=== PATIENT | female | born 1935 | race Caucasian/White ===

== ENCOUNTER 2016-08-24 09:40 | Inpatient (IN) | payer MEDICARE, OTHER ==
[2016-08-24] MEDS ORDERED: ASPIRIN 81 MG TABLET, CHEWABLE PO ONE (09:53)
--- NOTE | 2016-08-24 10:22 | ER Document Report ---
ED Cardiac - General Chief Complaint: Chest Pressure Stated Complaint: PRESSURE IN CHEST Time Seen by Provider: 08/24/16 10:04 Notes: Patient is complaining of a "pressure" in the anterior that started yesterday. It's been constant, increased with respirations, but not associated with any other symptoms. Has not felt short of breath or difficulty breathing. No nausea or vomiting or diarrhea. No fevers. Patient has a history of atrial fibrillation and is on Eliquis. Has never had pain or discomfort like current symptoms. Denies any recent unusual activity such as lifting or pushing or pulling or straining her chest. Patient has a history of atrial fibrillation, hypertension, and high cholesterol. 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 TRAVEL OUTSIDE OF THE [place] IN LAST 30 DAYS: No - Related Data Allergies/Adverse Reactions: No Known Allergies Allergy (Verified 03/22/15 07:22) Home Medications: Current Home Medications Apixaban [Eliquis 5 mg Tablet] 5 mg PO Q12 08/24/16 [History] Atorvastatin Calcium [Lipitor 20 mg Tablet] 20 mg PO QHS 08/24/16 [History] Past Medical History - Social History Smoking Status: Never Smoker Cigarette use (# per day): No Family History: Reviewed & Not Pertinent Patient has suicidal ideation: No Patient has homicidal ideation: No - Past Medical History Cardiac Medical History: Reports: Hx Atrial Fibrillation, Hx Hypercholesterolemia, Hx Hypertension Past Surgical History: Reports: Other - Patient had surgery for a brain aneurysm in the right christianity area years ago - Immunizations Hx Diphtheria, Pertussis, Tetanus Vaccination: No - UNSURE OF PNEU APPROX 2013. Review of Systems - Review of Systems Notes: REVIEW OF SYSTEMS: CONSTITUTIONAL : Denies fever. EENT: Denies eye, ear, nose or mouth or throat pain or other symptoms. CARDIOVASCULAR: Denies chest pain. See history of present illness. RESPIRATORY: Denies cough, chest congestion, or shortness of breath. GASTROINTESTINAL: Denies abdominal pain or nausea, vomiting, or diarrhea. GENITOURINARY: Denies difficulty or painful urinating, urinary frequency, blood in urine. MUSCULOSKELETAL: Denies back or neck pain. Denies joint pain or swelling. SKIN: Denies rash or skin lesions. NEUROLOGICAL: Denies LOC or altered mental status. Denies headache. Denies sensory loss or motor deficits. ALL OTHER SYSTEMS REVIEWED AND NEGATIVE. Physical Exam - Vital signs Vitals: Pulse Ox 98 08/24/16 09:53 Interpretation: Tachycardic. No: Febrile - Notes Notes: PHYSICAL EXAMINATION: GENERAL: Well-appearing, in no acute distress. Vital signs show an irregular heart rate at about 110. Patient is afebrile. HEAD: Atraumatic, normocephalic. ENT: oropharynx clear without exudates. Moist mucous membranes. NECK: Normal range of motion, supple. LUNGS: Breath sounds clear and equal bilaterally. No pain to press on the anterior chest. Pain if the patient takes a deep breath, however. HEART: Irregular rate and rhythm without murmurs. Heart rate about 110. ABDOMEN: Soft, nontender. No guarding or rebound. BACK: No tenderness throughout entire back. EXTREMITIES: Normal range of motion without pain. NEUROLOGICAL: Normal speech, normal gait. Normal sensory, motor, and reflex exams. Awake, alert, and oriented x3. Cranial nerves normal. PSYCH: Normal mood, normal affect. SKIN: Warm, dry, no rashes. Course - Re-evaluation Re-evalutation: 08/24/16 12:23 Case discussed with hospitalist who will admit the patient to telemetry for antibiotics and evaluation for her chest pain and management of her heart rate. - Vital Signs Vital signs: Temp Pulse Resp BP Pulse Ox 97.6 F 96 22 H 126/73 H 98 08/25/16 11:51 08/25/16 11:51 08/25/16 11:51 08/25/16 11:51 08/25/16 11:51 - Laboratory Result Diagrams: 08/25/16 04:26 08/25/16 04:26 Laboratory results interpreted by me: 08/24/16 08/24/16 08/24/16 10:20 10:20 10:20 WBC 15.5 H Seg Neuts % (Manual) 83 H Band Neutrophils % 9 H Lymphocytes % (Manual) 3 L Abs Neuts (Manual) 14.3 H PT 22.0 H Sodium 130.8 L Chloride 92 L Est GFR (Non-Af Amer) 56 L Glucose 187 H Total Bilirubin 2.8 H Direct Bilirubin 0.7 H Creatine Kinase 29 L TSH Urine Protein Urine Glucose (UA) Urine Ketones Urine Blood Ur Leukocyte Esterase 08/24/16 08/24/16 10:20 10:33 WBC Seg Neuts % (Manual) Band Neutrophils % Lymphocytes % (Manual) Abs Neuts (Manual) PT Sodium Chloride Est GFR (Non-Af Amer) Glucose Total Bilirubin Direct Bilirubin Creatine Kinase TSH 6.30 H Urine Protein 100 H Urine Glucose (UA) 50 H Urine Ketones 20 H Urine Blood SMALL H Ur Leukocyte Esterase MODERATE H Significant shift in the patient's CBC differential noted. Slight elevation in the patient's bilirubin noted. - Diagnostic Test Radiology results interpreted by me: 08/24/16 12:22 Chest x-ray shows cardiomegaly. Perhaps an infiltrate in the left base. No other significant findings. - EKG Interpretation by [place] Rhythm: A.Fib Additional EKG results interpreted by nh: 08/24/16 12:22 EKG shows atrial fibrillation with a heart rate of about 119. Nonspecific ST changes. Critical Care Note - Critical Care Note Total time excluding time spent on procedures (mins): 35 Discharge - Discharge Clinical Impression: Atrial fibrillation with rapid ventricular response Chest pain Qualifiers: Chest pain type: unspecified Qualified Code(s): R07.9 - Chest pain, unspecified UTI (urinary tract infection) Qualifiers: Urinary tract infection type: site unspecified Hematuria presence: without hematuria Qualified Code(s): N39.0 - Urinary tract infection, site not specified Condition: Good Disposition: HOME, SELF-CARE Admitting Provider: Hospitalist Unit Admitted: Telemetry
[2016-08-24 10:53] LABS: PARTIAL THROMBOPLASTIN TIME 33.8 SEC (23.5-35.8)
[2016-08-24 10:55] LABS: HEMOGLOBIN 14.1 g/dL (12.0-15.5); HGB HCT DIFFERENCE 0.3; MEAN CORPUSCULAR HEMOGLOBIN 32.3 pg (27.0-33.4); MEAN CORPUSCULAR HGB CONC 33.5 g/dL (32.0-36.0); MEAN CORPUSCULAR VOLUME 96 fl (80-97); RED BLOOD COUNT 4.36 10^6/uL (3.72-5.28); RED CELL DISTRIBUTION WIDTH 13.6 % (11.5-14.0); WHITE BLOOD COUNT 15.5 10^3/uL (4.0-10.5)
[2016-08-24 10:56] LABS: APPEARANCE,URINE TURBID; BILIRUBIN,URINE NEGATIVE (NEGATIVE); GLUCOSE, URINE 50 mg/dL (NEGATIVE); KETONES,URINE 20 mg/dL (NEGATIVE); LEUKOCYTE ESTERASE,URINE MODERATE (NEGATIVE); NITRITE,URINE NEGATIVE (NEGATIVE); PROTEIN,URINE 100 mg/dL (NEGATIVE); URINE SPECIFIC GRAVITY 1.018; UROBILINOGEN,URINE NEGATIVE mg/dL (<2.0)
[2016-08-24 11:21] LABS: CREATINE KINASE MB < 0.22 ng/mL (<4.55); TROPONIN I < 0.012 ng/mL
[2016-08-24 11:23] LABS: ALANINE AMINOTRANSFERASE 29 U/L (9-52); ALBUMIN 4.2 g/dL (3.5-5.0); ALKALINE PHOSPHATASE 115 U/L (38-126); ANION GAP 16 (5-19); ASPARTATE AMINO TRANSFERASE 30 U/L (14-36); BILIRUBIN,DIRECT 0.7 mg/dL (0.0-0.4); BILIRUBIN,TOTAL 2.8 mg/dL (0.2-1.3); BLOOD UREA NITROGEN 16 mg/dL (7-20); CALCIUM 9.4 mg/dL (8.4-10.2); CARBON DIOXIDE 23 mmol/L (22-30); CHLORIDE 92 mmol/L (98-107); CREATINE KINASE 29 U/L (30-135); CREATININE RESULT 0.96 mg/dL (0.52-1.25); GLUCOSE 187 mg/dL (75-110); SODIUM 130.8 mmol/L (137-145); TOTAL PROTEIN 7.4 g/dL (6.3-8.2)
[2016-08-24 11:43] LABS: EOSINOPHILS % (MANUAL) 0 % (0-6); TOTAL CELLS COUNTED 100
[2016-08-24 11:48] LABS: RBC MORPHOLOGY COMMENT NORMO-CYTIC/CHROMIC; TOXIC GRANULATION SLIGHT; TOXIC VACUOLATION PRESENT
[2016-08-24 12:02] LABS: BAND NEUTROPHILS % (MANUAL) 9 % (3-5); BASOPHILS % (MANUAL) 1 % (0-2); LYMPHOCYTES % (MANUAL) 3 % (13-45)
--- NOTE | 2016-08-24 12:06 | EKG REPORT ---
SEVERITY:- ABNORMAL ECG - ATRIAL FIBRILLATION, V-RATE 83-149 NONSPECIFIC T ABNORMALITIES, INFERIOR LEADS : Confirmed by: Abiel Gauthier 24-Aug-2016 12:06:25
[2016-08-24] MEDS ORDERED: CEFTRIAXONE 1 GM/D5W RTU 50 ML IV ONE (12:13)
[2016-08-24] MEDS ORDERED: NORMAL SALINE 1000 ML 1,000 ML IV ONE (14:26)
[2016-08-24] MEDS ORDERED: ACETAMINOPHEN 325 MG TABLET PO PRN (14:27)
[2016-08-24] MEDS ORDERED: ONDANSETRON HCL INJ/PF 4 MG/2 ML SDV IV PRN (14:27)
--- NOTE | 2016-08-24 14:49 | PDOC H&P ---
History of Present Illness Admission Date/PCP: 08/24/16 12:34 Patient complains of: Chest pain History of Present Illness: DEBBY WOLFE is a 81 year old female, with history of hypertension as well as atrial fibrillation and hyperlipidemia started to develop urinary urgency and frequency for a few days subsequently woke up with chest tightness and palpitations this morning. There was no dizziness or lightheadedness nor syncope. There is likewise no shortness of breath or diaphoresis, no nausea or vomiting. No cough or colds, no chills or fever. The patient was brought to the hospital for evaluation patient was found to be in atrial fibrillation with rapid ventricular response. She was found to have a urinary tract infection as well. Intravenous fluid was given, as well as antibiotics and the patient was referred for admission. The chest pain was precordial without any radiation and without any precipitating or relieving factors. No relation to activity as well. Past Medical History Past Medical History: Medications pending verification from the patients pharmacist. Cardiac Medical History: Reports: Atrial Fibrillation, Hyperlipidema, Hypertension Denies: Coronary Artery Disease, Myocardial Infarction Pulmonary Medical History: Denies: Asthma, Bronchitis, Chronic Obstructive Pulmonary Disease (COPD), Pneumonia Neurological Medical History: Denies: Seizures Musculoskeltal Medical History: Denies: Arthritis Hematology: Denies: Anemia Past Surgical History Past Surgical History: Reports: Other - Patient had surgery for a brain aneurysm in the right yazidi area years ago Denies: Hysterectomy Social History Information Source: Patient Smoking Status: Never Smoker Frequency of Alcohol Use: Social Hx Recreational Drug Use: No Drugs: None Family History Family History: None Parental Family History Reviewed: Yes Children Family History Reviewed: Yes Sibling(s) Family History Reviewed.: Yes Medication/Allergy Home Medications: Aspirin [Aspirin EC] 81 mg PO DAILY 03/22/15 Lisinopril 10 mg PO DAILY 03/22/15 Apixaban [Eliquis 5 mg Tablet] 5 mg PO Q12 08/24/16 Atorvastatin Calcium [Lipitor 20 mg Tablet] 20 mg PO QHS 08/24/16 Metoprolol Succinate [Toprol XL 100 mg Tablet] 100 mg PO DAILY 08/24/16 Allergies/Adverse Reactions: No Known Allergies Allergy (Verified 03/22/15 07:22) Review of Systems Constitutional: ABSENT: chills, fever(s), headache(s), weight gain, weight loss Eyes: ABSENT: visual disturbances Ears: ABSENT: hearing changes Cardiovascular: PRESENT: chest pain. ABSENT: dyspnea on exertion, edema, orthropnea, palpitations Respiratory: ABSENT: cough, dyspnea, hemoptysis, sputum Gastrointestinal: PRESENT: bloating. ABSENT: abdominal pain, constipation, diarrhea, hematemesis, hematochezia, melena, nausea, vomiting Genitourinary: PRESENT: other - urgency and frequency. ABSENT: dysuria, hematuria Musculoskeletal: ABSENT: joint swelling Integumentary: ABSENT: pruritus, rash, wounds Neurological: ABSENT: abnormal gait, abnormal speech, confusion, dizziness, focal weakness, syncope Psychiatric: ABSENT: anxiety, depression, homidical ideation, suicidal ideation Endocrine: ABSENT: cold intolerance, heat intolerance, polydipsia, polyphagia, polyuria Hematologic/Lymphatic: ABSENT: easy bleeding, easy bruising Physical Exam Vital Signs: Temp Pulse Resp BP Pulse Ox 98.1 F 110 H 19 133/84 H 94 08/24/16 14:00 08/24/16 09:56 08/24/16 14:01 08/24/16 14:00 08/24/16 14:01 General appearance: PRESENT: no acute distress Head exam: PRESENT: atraumatic, normocephalic Eye exam: PRESENT: conjunctiva pink, EOMI, PERRLA - sluggish B/L, other - ptosis on R. ABSENT: scleral icterus Ear exam: PRESENT: normal external ear exam Mouth exam: PRESENT: moist, neck supple, tongue midline Throat exam: ABSENT: post pharyngeal erythema, tonsillar erythema, tonsillar exudate Neck exam: ABSENT: carotid bruit, JVD, lymphadenopathy, thyromegaly Respiratory exam: PRESENT: clear to auscultation gisele. ABSENT: rales, rhonchi, wheezes Cardiovascular exam: PRESENT: RRR, systolic murmur - LSB, 2/6. ABSENT: diastolic murmur, rubs Pulses: PRESENT: normal dorsalis pedis pul Vascular exam: PRESENT: normal capillary refill GI/Abdominal exam: PRESENT: normal bowel sounds, soft. ABSENT: distended, guarding, mass, organolmegaly, rebound, tenderness Rectal exam: PRESENT: deferred Extremities exam: PRESENT: full ROM. ABSENT: calf tenderness, clubbing, pedal edema Neurological exam: PRESENT: alert, awake, oriented to person, oriented to place , oriented to time, oriented to situation Psychiatric exam: PRESENT: appropriate affect, normal mood. ABSENT: homicidal ideation, suicidal ideation Skin exam: PRESENT: dry, intact, warm. ABSENT: cyanosis, rash Results Laboratory Results: 08/24/16 13:07 Troponin I < 0.012 Impressions: Chest X-Ray 08/24/16 09:53 IMPRESSION: Borderline cardiomegaly, possible left lower lobe pneumonia, and no evidence of failure. Assessment & Plan - Diagnosis (1) Atrial fibrillation with rapid ventricular response Is this a current diagnosis for this admission?: Yes (2) Chest pain Qualifiers: Chest pain type: unspecified Qualified Code(s): R07.9 - Chest pain, unspecified Is this a current diagnosis for this admission?: Yes (3) Hyponatremia Is this a current diagnosis for this admission?: Yes (4) UTI (urinary tract infection) Qualifiers: Urinary tract infection type: site unspecified Hematuria presence: without hematuria Qualified Code(s): N39.0 - Urinary tract infection, site not specified Is this a current diagnosis for this admission?: Yes (5) Coagulopathy Is this a current diagnosis for this admission?: Yes (6) Hyperlipidemia Qualifiers: Hyperlipidemia type: unspecified Qualified Code(s): E78.5 - Hyperlipidemia, unspecified Is this a current diagnosis for this admission?: Yes (7) Essential hypertension Is this a current diagnosis for this admission?: Yes - Time Time Spent: 50 to 70 Minutes - Inpatient Certification Based on my medical assessment, after consideration of the patient's comorbidities, presenting symptoms, or acuity I expect that the services needed warrant INPATIENT care.: Yes I certify that my determination is in accordance with my understanding of Medicare's requirements for reasonable and necessary INPATIENT services [42 CFR 412.3e].: Yes Medical Necessity: Significant Comorbidiites Make Outpatient Treatment Too Risky , Need Close Monitoring Due to Risk of Patient Decompensation, Need For IV Fluids, Need For Continuous Telemetry Monitoring Post Hospital Care: D/C 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 Resume oral cardizem. Increase home metoprolol dose. Begin IVF and IV antibiotics w/ Levaquin and supplemental O2. Serial cardiac enzymes x3. Cont. anti-platelets & eliquis. Monitor electrolytes. Further testing depends on the initial evaluation as outlined above.
[2016-08-24 15:49] LABS: THYROID STIMULATING HORMONE 6.3 uIU/mL (0.47-4.68)
[2016-08-24] MEDS: NORMAL SALINE 1000 ML 1,000 ML IV PRN (15:50)
[2016-08-24] MEDS ORDERED: LEVOFLOXACIN 750 MG/D5W RTU 750 MG/150 ML RTUPB IV ONE (16:00)
[2016-08-24] MEDS: DILTIAZEM HCL 30 MG TABLET PO SCH ×2 (16:51→23:41)
[2016-08-24] MEDS: METOPROLOL TARTRATE 50 MG TABLET PO SCH ×2 (16:51→23:41)
[2016-08-24] MEDS: DOCUSATE SODIUM 100 MG CAPSULE PO SCH (16:52)
[2016-08-24] MEDS: APIXABAN 2.5 MG TABLET PO SCH (16:53)
[2016-08-24 17:16] LABS: CREATINE KINASE MB 0.23 ng/mL (<4.55)
[2016-08-24 17:17] LABS: TROPONIN I < 0.012 ng/mL
[2016-08-24 23:06] LABS: CREATINE KINASE MB 0.39 ng/mL (<4.55)
[2016-08-24 23:08] LABS: TROPONIN I < 0.012 ng/mL
[2016-08-25 04:40] LABS: HEMATOCRIT 37.8 % (36.0-47.0); HEMOGLOBIN 12.9 g/dL (12.0-15.5); HGB HCT DIFFERENCE 0.9; MEAN CORPUSCULAR HEMOGLOBIN 32.7 pg (27.0-33.4); MEAN CORPUSCULAR HGB CONC 34.2 g/dL (32.0-36.0); MEAN CORPUSCULAR VOLUME 95 fl (80-97); RED BLOOD COUNT 3.96 10^6/uL (3.72-5.28); RED CELL DISTRIBUTION WIDTH 13.8 % (11.5-14.0); WHITE BLOOD COUNT 11.6 10^3/uL (4.0-10.5)
[2016-08-25 05:02] LABS: ANION GAP 13 (5-19); BLOOD UREA NITROGEN 24 mg/dL (7-20); CALCIUM 8.5 mg/dL (8.4-10.2); CARBON DIOXIDE 20 mmol/L (22-30); CHLORIDE 97 mmol/L (98-107); CREATININE RESULT 0.88 mg/dL (0.52-1.25); GLUCOSE 134 mg/dL (75-110); POTASSIUM 4.4 mmol/L (3.6-5.0); SODIUM 129.6 mmol/L (137-145)
[2016-08-25 05:05] LABS: BAND NEUTROPHILS % (MANUAL) 1 % (3-5); BASOPHILS % (MANUAL) 0 % (0-2); EOSINOPHILS % (MANUAL) 0 % (0-6); LYMPHOCYTES % (MANUAL) 4 % (13-45); TOTAL CELLS COUNTED 100
[2016-08-25 05:08] LABS: OVALOCYTES SLIGHT; PLATELET CLUMPS PRESENT; POIKILOCYTOSIS SLIGHT
[2016-08-25 05:09] LABS: TOXIC GRANULATION SLIGHT
[2016-08-25 05:11] LABS: CREATINE KINASE MB 0.55 ng/mL (<4.55)
[2016-08-25 05:14] LABS: TROPONIN I < 0.012 ng/mL
[2016-08-25] MEDS: METOPROLOL TARTRATE 50 MG TABLET PO SCH (05:17)
[2016-08-25] MEDS ORDERED: LANSOPRAZOLE 30 MG TAB.RAP.DR PO SCH (06:00)
[2016-08-25] MEDS: NORMAL SALINE 1000 ML 1,000 ML IV PRN (08:41)
[2016-08-25] MEDS: APIXABAN 2.5 MG TABLET PO SCH (09:32)
[2016-08-25] MEDS: DILTIAZEM HCL 30 MG TABLET PO SCH (09:34)
[2016-08-25] MEDS: DOCUSATE SODIUM 100 MG CAPSULE PO SCH (09:35)
[2016-08-25] MEDS ORDERED: LEVOFLOXACIN 750 MG/D5W RTU 750 MG/150 ML RTUPB IV SCH (10:00)
[2016-08-25] MEDS ORDERED: ASPIRIN 81 MG TABLET, ENT COATED PO SCH (10:00)
--- NOTE | 2016-08-25 10:04 | PDOC DISCHARGE SUMMARY ---
General - Admit/Disc Date/PCP Admission Date/Primary Care Provider: 08/24/16 14:27 Discharge Date: 08/25/16 - Discharge Diagnosis (1) Atrial fibrillation with rapid ventricular response Is this a current diagnosis for this admission?: Yes (2) Chest pain Is this a current diagnosis for this admission?: Yes (3) Hyponatremia Is this a current diagnosis for this admission?: Yes (4) UTI (urinary tract infection) Is this a current diagnosis for this admission?: Yes (5) Coagulopathy Is this a current diagnosis for this admission?: Yes (6) Hyperlipidemia Is this a current diagnosis for this admission?: Yes (7) Essential hypertension Is this a current diagnosis for this admission?: Yes - Additional Information Resuscitation Status: Full Code Discharge Diet: Cardiac Discharge Activity: Activity As Tolerated, Balance Activity w/Rest, Slowly Increase Activity Home Medications: Aspirin [Aspirin EC] 81 mg PO DAILY 03/22/15 Lisinopril 10 mg PO DAILY 03/22/15 Apixaban [Eliquis 5 mg Tablet] 5 mg PO Q12 08/24/16 Atorvastatin Calcium [Lipitor 20 mg Tablet] 20 mg PO QHS 08/24/16 Apixaban [Eliquis 2.5 mg Tablet] 2.5 mg PO BID tablet 08/25/16 Metoprolol Succinate [Toprol XL 100 mg Tablet] 100 mg PO BID #60 08/25/16 Additional Information: 1. Follow up final results of blood culture and urine culture as outpatient with primary care physician 2. Stress test as outpatient with primary or with Dr. Contreras in one week. History of Present Illness Patient complains of: Chest pain History of Present Illness: DEBBY WOLFE is a 81 year old female, with history of hypertension as well as atrial fibrillation and hyperlipidemia started to develop urinary urgency and frequency for a few days subsequently woke up with chest tightness and palpitations this morning. There was no dizziness or lightheadedness nor syncope. There is likewise no shortness of breath or diaphoresis, no nausea or vomiting. No cough or colds, no chills or fever. The patient was brought to the hospital for evaluation patient was found to be in atrial fibrillation with rapid ventricular response. She was found to have a urinary tract infection as well. Intravenous fluid was given, as well as antibiotics and the patient was referred for admission. The chest pain was precordial without any radiation and without any precipitating or relieving factors. No relation to activity as well. Hospital Course Hospital Course: The patient was admitted to telemetry. The patient was given intravenous fluids , oral Cardizem was started every 6 hours, his metoprolol dose was increased from 100 mg daily to 200 mg daily. Patient's blood pressure was monitored. Heart rate became controlled with above measure. Her TSH was elevated but her free T4 is normal . Patient was found to have urinary tract infection and was started on intravenous antibiotics. Patient's WBC initially was high and it trended down. No fever was noted. The patient significantly improved the following morning, wanting to go home and requested to be discharged. Patient was advised to follow-up with primary care physician in a week, and follow-up results all blood culture and an outpatient basis as well as urine culture. In terms of her chest pain it has resolved, serial cardiac enzymes were negative for myocardial infarction. She was advised to have a stress test done on an outpatient basis. Physical Exam Vital Signs: Temp Pulse Resp BP Pulse Ox 97.6 F 96 22 H 132/82 H 98 08/25/16 07:53 08/25/16 07:53 08/25/16 07:53 08/25/16 07:53 08/25/16 07:53 Intake & Output 08/24/16 08/25/16 08/26/16 06:59 06:59 06:59 Intake Total 2960 Balance 2960 Weight 71.1 kg General appearance: PRESENT: no acute distress, cooperative Head exam: PRESENT: normocephalic Eye exam: PRESENT: EOMI Mouth exam: PRESENT: moist, neck supple Neck exam: ABSENT: JVD Respiratory exam: PRESENT: clear to auscultation gisele Cardiovascular exam: PRESENT: irregular rhythm. ABSENT: gallop GI/Abdominal exam: PRESENT: soft. ABSENT: distended, tenderness Extremities exam: ABSENT: pedal edema Neurological exam: PRESENT: alert, awake, oriented to person, oriented to place , oriented to time, oriented to situation Skin exam: PRESENT: dry, warm. ABSENT: cyanosis Results Laboratory Results: 08/25/16 04:26 08/25/16 04:26 08/25/16 08/25/16 04:26 04:26 WBC 11.6 H RBC 3.96 Hgb 12.9 Hct 37.8 MCV 95 MCH 32.7 MCHC 34.2 RDW 13.8 Plt Count 120 L Seg Neutrophils % Not Reportable Lymphocytes % Not Reportable Monocytes % Not Reportable Eosinophils % Not Reportable Basophils % Not Reportable Absolute Neutrophils Not Reportable Absolute Lymphocytes Not Reportable Absolute Monocytes Not Reportable Absolute Eosinophils Not Reportable Absolute Basophils Not Reportable Sodium 129.6 L Potassium 4.4 Chloride 97 L Carbon Dioxide 20 L Anion Gap 13 BUN 24 H Creatinine 0.88 Est GFR ( Amer) > 60 Est GFR (Non-Af Amer) > 60 Glucose 134 H Calcium 8.5 08/24/16 08/24/16 08/24/16 16:30 16:30 22:36 Creatine Kinase 33 CK-MB (CK-2) 0.23 0.39 Troponin I < 0.012 < 0.012 08/24/16 08/25/16 08/25/16 22:36 04:26 04:26 Creatine Kinase 35 41 CK-MB (CK-2) 0.55 Troponin I < 0.012 Impressions: Chest X-Ray 08/24/16 09:53 IMPRESSION: Borderline cardiomegaly, possible left lower lobe pneumonia, and no evidence of failure. Qualifiers PATEINT BEING DISCHARGED WITH ANY OF THE FOLLOWING DIAGNOSIS?: No Plan Discharge Plan: Follow-up with primary care physician in one week. Time Spent: Less than 30 Minutes
[2016-08-25 11:54] VITALS: BP 126/73
== END 2016-08-25 12:35 | disposition home or self-care (01) | DRG 309 ==
LOC: ER 09:40 → UNDOADMIN 12:34 → EH 12:34 → 5 14:27 → EH 15:07
PROVIDERS: ADMIT Internal Medicine; ATTEND Internal Medicine
DX: I48.91 Unspecified atrial fibrillation (principal); N39.0 Urinary tract infection, site not specified; I10 Essential (primary) hypertension; Z79.02 Long term (current) use of antithrombotics/antiplatelets; E78.00 Pure hypercholesterolemia, unspecified; Z86.79 Personal history of other diseases of the circulatory system; Z79.899 Other long term (current) drug therapy
CPT/HCPCS: 36415; 71010; 80048; 80053; 81001; 82550; 82553; 84439; 84443; 84484; 85025; 85610; 85730; 87040; 87086; 87088; 87186; 93005; 93010; 99291; J0696; J1956; J7030

== ENCOUNTER 2016-09-08 07:07 | Emergency (ER) | payer MEDICARE, OTHER ==
--- NOTE | 2016-09-08 07:56 | ER Document Report ---
ED Dizziness/Weakness - General Chief Complaint: General Weakness Stated Complaint: WEAKNESS Time Seen by Provider: 09/08/16 07:41 Mode of Arrival: Ambulatory Information source: Patient Notes: Patient is a 81-year-old female who presents to the ER today for weakness, generalized 1 week. Patient was sent here by her caretaker For a pneumonia shot that he told her to come get at the ER because he said she had pneumonia when she saw him yesterday. She denies cough/ runny nose, fever/ chills that she knows of, dysuria. She was admitted here for a fib with rvr on this month and had a possible pneumonia seen on chest x ray at that time , got 1 day of IV levaquin and went home on no medications. She says that she was discharged 4 days ago from [facility] who treated her for "fluid on the lungs." She denies that she is on any antibiotics at this time or that they sent her home on any antibiotics. She denies knowing that she had pneumonia until yesterday at the caretaker's office. She denies chest pain or shortness of breath, wheezing. She denies any history of breathing issues such as asthma or COPD. TRAVEL OUTSIDE OF THE [place] IN LAST 30 DAYS: No - Related Data Allergies/Adverse Reactions: No Known Allergies Allergy (Verified 03/22/15 07:22) Past Medical History - General Information source: Patient - Social History Smoking Status: Never Smoker Family History: Reviewed & Not Pertinent Patient has suicidal ideation: No Patient has homicidal ideation: No - Past Medical History Cardiac Medical History: Reports: Hx Atrial Fibrillation, Hx Hypercholesterolemia, Hx Hypertension Denies: Hx Coronary Artery Disease, Hx Heart Attack Pulmonary Medical History: Denies: Hx Asthma, Hx Bronchitis, Hx COPD, Hx Pneumonia Neurological Medical History: Denies: Hx Cerebrovascular Accident, Hx Seizures Renal/ Medical History: Denies: Hx Peritoneal Dialysis Musculoskeltal Medical History: Denies Hx Arthritis Past Surgical History: Reports: Other - Patient had surgery for a brain aneurysm in the right anabaptism area years ago. Denies: Hx Hysterectomy - Immunizations Hx Diphtheria, Pertussis, Tetanus Vaccination: No - UNSURE OF PNEU APPROX 2012. Review of Systems - Review of Systems Constitutional: No symptoms reported EENT: No symptoms reported Cardiovascular: No symptoms reported Respiratory: See HPI Gastrointestinal: No symptoms reported Genitourinary: No symptoms reported Female Genitourinary: No symptoms reported Musculoskeletal: No symptoms reported Skin: No symptoms reported Hematologic/Lymphatic: No symptoms reported Neurological/Psychological: No symptoms reported Physical Exam - Vital signs Vitals: Temp Pulse Resp BP Pulse Ox 97.4 F 120 H 16 90/68 L 95 09/08/16 07:11 09/08/16 07:11 09/08/16 07:11 09/08/16 07:11 09/08/16 07:11 - Notes Notes: PHYSICAL EXAMINATION: GENERAL: mildly ill appearing, fatigued in appearance, in no acute distress. HEAD: Atraumatic, normocephalic. EYES: Pupils equal round and reactive to light, extraocular movements intact, sclera anicteric, conjunctiva are normal. ENT: ear canals without erythema or foreign body, TMs pearly rob with good bony landmarks, nares patent, oropharynx clear without exudates. Moist mucous membranes. NECK: Normal range of motion, supple without lymphadenopathy LUNGS: small cough once but otherwise CTAB and equal. No wheezes rales or rhonchi. HEART: Regular rate and rhythm without murmurs ABDOMEN: Soft, no tenderness. No guarding, no rebound BACK: no vertebral tenderness, normal ROM GI/: no CVA tenderness EXTREMITIES: Normal range of motion, no pitting edema. No cyanosis. NEUROLOGICAL: Cranial nerves grossly intact. Normal sensory/motor exams. PSYCH: Normal mood, normal affect. SKIN: Warm, Dry, normal turgor, no rashes or lesions noted Course - Re-evaluation Re-evalutation: 09/08/16 11:10 pt came in with a bp of 90/58 and pulse of 118bpm. She has stayed consistenly since arrival at 113/69 without any intervention and her pulse decreased to 95bpm. 09/08/16 18:23 - Vital Signs Vital signs: Temp Pulse Resp BP Pulse Ox 97.4 F 120 H 22 H 97/69 L 98 09/08/16 12:01 09/08/16 07:11 09/08/16 12:01 09/08/16 12:01 09/08/16 12:01 - Laboratory Result Diagrams: 09/08/16 08:10 09/08/16 08:10 Laboratory results interpreted by me: 09/08/16 09/08/16 08:10 08:10 RBC 3.39 L Hgb 10.8 L Hct 32.1 L RDW 14.1 H Seg Neuts % (Manual) 87 H Band Neutrophils % 2 L Lymphocytes % (Manual) 8 L Sodium 132.2 L Chloride 96 L Creatine Kinase 22 L Total Protein 6.2 L Discharge - Discharge Clinical Impression: Pneumonia Qualifiers: Pneumonia type: due to unspecified organism Laterality: right Lung location: lower lobe of lung Qualified Code(s): J18.1 - Lobar pneumonia, unspecified organism Atrial fibrillation Qualifiers: Atrial fibrillation type: chronic Qualified Code(s): I48.2 - Chronic atrial fibrillation Condition: Stable Disposition: HOME, SELF-CARE Additional Instructions: Please take your antibiotics as prescribed, and is very important that he continue on these as you have pneumonia. You have you been given an inhaler today if you need it at home for any shortness of breath, you can take it every 4 hours, 2 puffs by mouth. Please take your prednisone as well daily at breakfast time only for the pneumonia. Return immediately for any new or worsening symptoms. Please call a primary care provider, you can see [facility] in [place] and make a follow up appointment, you need to establish care at a primary care office, call today to make an appointment. [facility] Prescriptions: Albuterol Sulfate [Proair HFA Inhalation Aerosol 8.5 gm MDI] 2 puff IH Q4H PRN # 1 mdi PRN Reason: Doxycycline Hyclate 100 mg PO BID #20 capsule Prednisone 40 mg PO DAILY #14 tablet Referrals: PAUL ARVIZU MD [ACTIVE STAFF] - Follow up as needed
--- NOTE | 2016-09-08 08:20 | EKG REPORT ---
SEVERITY:- ABNORMAL ECG - ATRIAL FIBRILLATION, V-RATE 82-134 NONSPECIFIC T ABNORMALITIES, DIFFUSE LEADS : Confirmed by: Phi Stanley MD 08-Sep-2016 08:19:37
[2016-09-08 08:25] LABS: HEMATOCRIT 32.1 % (36.0-47.0); HEMOGLOBIN 10.8 g/dL (12.0-15.5); HGB HCT DIFFERENCE 0.3; MEAN CORPUSCULAR HGB CONC 33.8 g/dL (32.0-36.0); MEAN CORPUSCULAR VOLUME 95 fl (80-97); RED BLOOD COUNT 3.39 10^6/uL (3.72-5.28); RED CELL DISTRIBUTION WIDTH 14.1 % (11.5-14.0); WHITE BLOOD COUNT 7.8 10^3/uL (4.0-10.5)
[2016-09-08 08:40] LABS: ALANINE AMINOTRANSFERASE 41 U/L (9-52); ALBUMIN 3.5 g/dL (3.5-5.0); ALKALINE PHOSPHATASE 116 U/L (38-126); ANION GAP 10 (5-19); ASPARTATE AMINO TRANSFERASE 34 U/L (14-36); BILIRUBIN,DIRECT 0.3 mg/dL (0.0-0.4); BILIRUBIN,TOTAL 0.8 mg/dL (0.2-1.3); BLOOD UREA NITROGEN 19 mg/dL (7-20); CALCIUM 8.9 mg/dL (8.4-10.2); CARBON DIOXIDE 26 mmol/L (22-30); CHLORIDE 96 mmol/L (98-107); CREATINE KINASE 22 U/L (30-135); CREATININE RESULT 0.87 mg/dL (0.52-1.25); GLUCOSE 102 mg/dL (75-110); LIPASE 263.4 U/L (23-300); POTASSIUM 3.7 mmol/L (3.6-5.0); SODIUM 132.2 mmol/L (137-145); TOTAL PROTEIN 6.2 g/dL (6.3-8.2)
--- NOTE | 2016-09-08 08:41 | RADIOLOGY REPORT (SQ) ---
EXAM DESCRIPTION: CHEST SINGLE VIEW COMPLETED DATE/TIME: 09/08/2016 8:31 am REASON FOR STUDY: possible pneumonia COMPARISON: 08/24/2016 EXAM PARAMETERS: NUMBER OF VIEWS: One view. TECHNIQUE: Single frontal radiographic view of the chest acquired. RADIATION DOSE: NA LIMITATIONS: None. FINDINGS: LUNGS AND PLEURA: Persistent blunting of the left costophrenic angle with associated subse gmental airspace disease. Right lung is clear. MEDIASTINUM AND HILAR STRUCTURES: No masses. Contour normal. HEART AND VASCULAR STRUCTURES: Stable cardiomegaly. BONES: No acute findings. HARDWARE: None in the chest. OTHER: No other significant finding. IMPRESSION: Persistent/recurrent pneumonia left lower lobe. TECHNICAL DOCUMENTATION: JOB ID: [id number]
[2016-09-08 08:43] LABS: BAND NEUTROPHILS % (MANUAL) 2 % (3-5); BASOPHILS % (MANUAL) 0 % (0-2); EOSINOPHILS % (MANUAL) 0 % (0-6); LYMPHOCYTES % (MANUAL) 8 % (13-45); TOTAL CELLS COUNTED 100
[2016-09-08 08:44] LABS: ANISOCYTOSIS SLIGHT; HYPOCHROMASIA SLIGHT
[2016-09-08 08:52] LABS: TROPONIN I < 0.012 ng/mL
[2016-09-08] MEDS ORDERED: NORMAL SALINE 1000 ML 500 ML IV ONE (08:57)
[2016-09-08] MEDS ORDERED: LEVOFLOXACIN 750 MG/D5W RTU 150 ML IV ONE (09:33)
[2016-09-08 09:47] LABS: APPEARANCE,URINE CLEAR; BILIRUBIN,URINE NEGATIVE (NEGATIVE); GLUCOSE, URINE NEGATIVE (NEGATIVE); KETONES,URINE NEGATIVE (NEGATIVE); LEUKOCYTE ESTERASE,URINE NEGATIVE (NEGATIVE); NITRITE,URINE NEGATIVE (NEGATIVE); PROTEIN,URINE NEGATIVE (NEGATIVE); URINE SPECIFIC GRAVITY 1.004; UROBILINOGEN,URINE NEGATIVE mg/dL (<2.0)
[2016-09-08] MEDS ORDERED: METOPROLOL TARTRATE 25 MG TABLET PO ONE (10:08)
[2016-09-08] MEDS ORDERED: PREDNISONE 20 MG TABLET PO ONE (11:11)
[2016-09-08 12:29] VITALS: BP 97/69
== END 2016-09-08 12:29 | disposition home or self-care (01) ==
LOC: ER 07:07
DX: J18.1 Lobar pneumonia, unspecified organism (principal); I48.2 Chronic atrial fibrillation; R53.1 Weakness; E78.00 Pure hypercholesterolemia, unspecified; I10 Essential (primary) hypertension
CPT/HCPCS: 93005; 99285; 96365; 96366; 36415; 87040; 82553; 82550; 83690; 85025; 80053; 81001; 84484; 71010; 93010; A9270 ×2; J1956; J7512

== ENCOUNTER 2017-01-16 15:42 | Emergency (ER) | payer MEDICARE, OTHER ==
--- NOTE | 2017-01-16 16:02 | ER Document Report ---
ED General - General Stated Complaint: POSSIBLE STROKE Time Seen by Provider: 01/16/17 15:47 Notes: 81-year-old female with unknown past medical history secondary to patient altered mental status and EMS not knowing the entire history, presents to the ED last seen normal at 8 AM found by her after a golf game at about 3 PM on [address] floor. She had some aphasia and was weak on the left side. Blood sugar and vitals were normal per EMS. Brought in to the emergency department. No further history is available and patient cannot give a history. TRAVEL OUTSIDE OF THE [place] IN LAST 30 DAYS: No - Related Data Allergies/Adverse Reactions: No Known Allergies Allergy (Verified 03/22/15 07:22) Past Medical History - Social History Smoking Status: Unknown if Ever Smoked Family History: Reviewed & Not Pertinent - Past Medical History Cardiac Medical History: Reports: Hx Atrial Fibrillation, Hx Hypercholesterolemia, Hx Hypertension Denies: Hx Coronary Artery Disease, Hx Heart Attack Pulmonary Medical History: Denies: Hx Asthma, Hx Bronchitis, Hx COPD, Hx Pneumonia Neurological Medical History: Denies: Hx Cerebrovascular Accident, Hx Seizures Renal/ Medical History: Denies: Hx Peritoneal Dialysis Musculoskeltal Medical History: Denies Hx Arthritis Past Surgical History: Reports: Hx Neurologic Surgery - Brain surgery for aneurysm in 2000, Other - 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 Denies: Hx Hysterectomy - Immunizations Hx Diphtheria, Pertussis, Tetanus Vaccination: No - UNSURE OF PNEU APPROX 2012. Review of Systems - Review of Systems Notes: REVIEW OF SYSTEMS Unable to obtain secondary to aphasia PHYSICAL EXAMINATION General: No acute distress, well-nourished Head: Atraumatic, normocephalic ENT: Mouth normal, oropharynx moist, no exudates or tonsillar enlargement Eyes: Conjunctiva normal, pupils equal, lids normal Neck: No JVD, supple, no guarding CVS: Normal rate, regular rhythm, no murmurs Resp: No resp distress, equal and normal breath sounds bilaterally GI: Nondistended, soft, no tenderness to palpation, no rebound or guarding Ext: No deformities, no edema, normal range of motion in upper and lower ext Back: No CVA or midline TTP Skin: No rash, warm Lymphatic: No lymphadeopathy noted Neuro: Left-sided facial droop, no effort with left arm against gravity, no effort of left leg against gravity. Numbness to pinprick in left arm and leg. Mild aphasia. Patient knows her name. Mild dysarthria. Does not know the month of the year. Left-sided neglect. Unable to test limb ataxia. Physical Exam - Vital signs Vitals: Resp Pulse Ox 31 H 71 L 01/16/17 16:07 01/16/17 16:07 Course - Re-evaluation Re-evalutation: 01/16/17 16:00 Patient presents being found down with left hemiplegia dysarthria and mild altered mental status. Differential includes intracranial hemorrhage, right-sided MCA stroke, traumatic brain injury. Placed on monitor IV access obtained. Does not meet code stroke criteria given time course however may meet large vessel occlusion criteria given time course. Taken to CT scan, with creatinine. At 402 I saw the scan which shows a large right and parenchymal vasoganglia bleed without appreciable midline shift or herniation. Placed a call avoidant at 4 PM. 01/16/17 16:25 Reassessed at 4:20 PM. Neuro exam unchanged, at bedside. The critical nature of this patient to him. He does not know her meds but knows that she is on blood thinner. 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 Check with leadership, we do not have factor concentrates and typically get FFP for this type situation. This was ordered. I also ordered a nicardipine drip to keep her systolic blood pressure is 150. Awaiting callback from [facility]. 01/16/17 18:00 Assessed at 5:50 PM. Patient is still awake looking around the room in response to my questions. Do not believe she needs an advanced airway at this time and the helicopter is here to pick her up. Nicardipine is being started. - Vital Signs Vital signs: Temp Pulse Resp BP Pulse Ox 98.4 F 130 H 22 H 175/105 H 99 01/16/17 16:16 01/16/17 16:16 01/16/17 16:28 01/16/17 16:16 01/16/17 16:16 - Laboratory Result Diagrams: 01/16/17 15:30 01/16/17 15:30 Laboratory results interpreted by me: 01/16/17 01/16/17 01/16/17 15:30 15:30 15:30 WBC 11.7 H Hgb 15.7 H RDW 15.5 H Seg Neutrophils % 86.8 H Lymphocytes % 6.6 L Absolute Neutrophils 10.1 H PT 15.8 H Total Bilirubin 1.5 H Direct Bilirubin 0.6 H AST 75 H ALT 61 H Alkaline Phosphatase 158 H Creatine Kinase 991 H CK-MB (CK-2) 01/16/17 15:30 WBC Hgb RDW Seg Neutrophils % Lymphocytes % Absolute Neutrophils PT Total Bilirubin Direct Bilirubin AST ALT Alkaline Phosphatase Creatine Kinase CK-MB (CK-2) 12.40 H Critical Care Note - Critical Care Note Total time excluding time spent on procedures (mins): 72 Comments: The above patient is critically ill. Not including procedures, but including direct re-evaluations, speaking with patient and/or consultants, interpreting results, and documenting, I spent the total amount of minute listed listed above on critical care time. Verified full CODE STATUS with . Discharge - Discharge Clinical Impression: Hemorrhagic stroke Condition: Critical Disposition: [facility]
[2017-01-16 16:16] LABS: ABSOLUTE LYMPHOCYTES (AUTO) 0.8 10^3/uL (0.5-4.7); ABSOLUTE MONOCYTES (AUTO) 0.7 10^3/uL (0.1-1.4); ABSOLUTE NEUT (AUTO) 10.1 10^3/uL (1.7-8.2); BASOPHILS % (AUTO) 0.3 % (0-2); HEMATOCRIT 46.6 % (36.0-47.0); HEMOGLOBIN 15.7 g/dL (12.0-15.5); HGB HCT DIFFERENCE 0.5; LYMPHOCYTES % (AUTO) 6.6 % (13-45); MEAN CORPUSCULAR HEMOGLOBIN 30.3 pg (27.0-33.4); MEAN CORPUSCULAR HGB CONC 33.7 g/dL (32.0-36.0); MEAN CORPUSCULAR VOLUME 90 fl (80-97); MONOCYTES % (AUTO) 6.3 % (3-13); RED BLOOD COUNT 5.17 10^6/uL (3.72-5.28); RED CELL DISTRIBUTION WIDTH 15.5 % (11.5-14.0); SEGMENTED NEUTROPHILS % (AUTO) 86.8 % (42-78); WHITE BLOOD COUNT 11.7 10^3/uL (4.0-10.5)
[2017-01-16] MEDS ORDERED: NORMAL SALINE 250 ML IV PRN ×2 (16:21)
[2017-01-16] MEDS ORDERED: NICARDIPINE HCL RTU, ISO-OS 20 MG/200 ML RTUINJ IV PRN (16:24)
[2017-01-16 16:26] LABS: PROTHROMBIN TIME 15.8 SEC (11.4-15.4)
--- NOTE | 2017-01-16 16:26 | RADIOLOGY REPORT (SQ) ---
EXAM DESCRIPTION: CT HEAD WITHOUT COMPLETED DATE/TIME: 01/16/2017 4:03 pm REASON FOR STUDY: stroke R MCA syndrome COMPARISON: None. TECHNIQUE: Axial images acquired through the brain without intravenous contrast. Images reviewed wi th bone, brain and subdural windows. Images stored on PACS. All CT scanners at this facility use dose modulation, iterative reconstruction, and/or weight based d osing when appropriate to reduce radiation dose to as low as reasonably achievable (ALARA). [facility]: Dose Right [facility]: CareDose [facility]: Dose Right [facility]: Teradose 4D [facility]: [employer] RADIATION DOSE: Up-to-date CT equipment and radiation dose reduction techniques were employed. CTDIv ol: 64.6 mGy. DLP: 2430 mGy-cm. mGy. LIMITATIONS: None. FINDINGS: VENTRICLES: Normal size and contour. CEREBRUM: There is a 24 x 37 mm hemorrhage in the medial right temporal lobe. Aneurysm clips are pre sent in the base of the middle cranial fossa on the right. Normal cobb/white matter differentiation. No areas of low density in the white matter. CEREBELLUM: No masses. No hemorrhage. No alteration of density. No evidence for acute infarction. EXTRAAXIAL SPACES: No fluid collections. No masses. ORBITS AND GLOBE: No intra- or extraconal masses. Normal contour of globe without masses. CALVARIUM: Craniotomy changes in the right temporal area. PARANASAL SINUSES: No fluid or mucosal thickening. SOFT TISSUES: No mass or hematoma. OTHER: No other significant finding. IMPRESSION: 1. Acute parenchymal hemorrhage in the medial right temporal lobe. 2. Craniotomy changes in the right temporal area. EVIDENCE OF ACUTE STROKE: YES. RIGHT MCA COMMENT: Findings were discussed with the ordering physician at 1620 hours on this date. Quality ID # [id number]: Final reports with documentation of one or more dose reduction techniques (e.g., Au tomated exposure control, adjustment of the mA and/or kV according to patient size, use of iterative reconstruction technique) TECHNICAL DOCUMENTATION: JOB ID: [id number]- All Rights Reserved
--- NOTE | 2017-01-16 16:27 | RADIOLOGY REPORT (SQ) ---
EXAM DESCRIPTION: CHEST SINGLE VIEW COMPLETED DATE/TIME: 01/16/2017 4:06 pm REASON FOR STUDY: stroke R MCA syndrome COMPARISON: 09/08/2016 EXAM PARAMETERS: NUMBER OF VIEWS: One view. TECHNIQUE: Single frontal radiographic view of the chest acquired. RADIATION DOSE: NA LIMITATIONS: None. FINDINGS: LUNGS AND PLEURA: No opacities, masses or pneumothorax. No pleural effusion. MEDIASTINUM AND HILAR STRUCTURES: No masses. Contour normal. HEART AND VASCULAR STRUCTURES: Cardiomegaly mild vascular congestion. Early pulmonary edema is sugge sted. BONES: No acute findings. HARDWARE: None in the chest. OTHER: No other significant finding. IMPRESSION: Cardiomegaly with early pulmonary edema. TECHNICAL DOCUMENTATION: JOB ID: [id number]
[2017-01-16 16:37] LABS: ALANINE AMINOTRANSFERASE 61 U/L (9-52); ALBUMIN 4.4 g/dL (3.5-5.0); ALKALINE PHOSPHATASE 158 U/L (38-126); ANION GAP 14 (5-19); ASPARTATE AMINO TRANSFERASE 75 U/L (14-36); BILIRUBIN,DIRECT 0.6 mg/dL (0.0-0.4); BILIRUBIN,TOTAL 1.5 mg/dL (0.2-1.3); BLOOD UREA NITROGEN 19 mg/dL (7-20); CALCIUM 9.7 mg/dL (8.4-10.2); CARBON DIOXIDE 26 mmol/L (22-30); CHLORIDE 100 mmol/L (98-107); CREATINE KINASE 991 U/L (30-135); CREATININE RESULT 0.75 mg/dL (0.52-1.25); GLUCOSE 107 mg/dL (75-110); POTASSIUM 4.1 mmol/L (3.6-5.0); SODIUM 139.9 mmol/L (137-145); TOTAL PROTEIN 7.2 g/dL (6.3-8.2)
[2017-01-16 16:59] LABS: CREATINE KINASE MB 12.4 ng/mL (<4.55); TROPONIN I 0.018 ng/mL
[2017-01-16 18:38] VITALS: BP 179/106
--- NOTE | 2017-01-17 09:09 | EKG REPORT ---
SEVERITY:- ABNORMAL ECG - ATRIAL FIBRILLATION, V-RATE 91-140 NONSPECIFIC REPOL ABNORMALITY, DIFFUSE LEADS : Confirmed by: Marian Parham MD 17-Jan-2017 09:08:15
== END 2017-01-16 18:39 | disposition short-term general hospital (02) ==
LOC: ER 15:42
DX: I62.9 Nontraumatic intracranial hemorrhage, unspecified (principal); R47.01 Aphasia; G81.94 Hemiplegia, unspecified affecting left nondominant side; R29.810 Facial weakness; R20.0 Anesthesia of skin; I10 Essential (primary) hypertension; Z79.01 Long term (current) use of anticoagulants; Z98.890 Other specified postprocedural states
CPT/HCPCS: 93005; 99291; 96365; 86900; 86901; 36415; 82553; 86850; 82550; 85025; 85610; 85730; 80053; 84484; 71010; 70450; 93010; J3490